=== PATIENT | male | born 1980 ===

== ENCOUNTER 2017-06-03 16:54 | Emergency (ER) | payer BC ==
[2017-06-03 17:04] VITALS: BP 140/83
--- NOTE | 2017-06-03 18:35 | EDM.PDOC ---
ED HPI GENERAL MEDICAL PROBLEM - General Chief Complaint: Chest Pain Stated Complaint: CHEST PAINS AND TIGHTNESS Time Seen by Provider: 06/03/17 18:00 Source of Information: Reports: Patient, Old Records History Limitations: Reports: No Limitations - History of Present Illness INITIAL COMMENTS - FREE TEXT/NARRATIVE: 36-year-old male presents for evaluation and treatment of left-sided chest pain. Patient reports that this current episode chest pain has been present for the last month. States it is episodic. Prior to his episode of chest pain he has had episodic chest pain for at least the last year. He reports that he has been complaining about it for the last 5 years. He was seen in the ER in May 2016 and had a complete workup done. He was then referred on to family medicine. He did see a family medicine provider at [facility]. Had additional labs and testing done. He is instructed to have a stress test but states he never did have the pain. He is currently complaining of tightness there is episodic. He states he's changed his diet since last year and is down approximately 30 pounds. He follows a ketogenic diet. He states he removed Rice from his diaper recently added this back in. He questions if this is what's causing the chest pain. He states that with breathing it seems to hurt. No cough. No fevers, chills, nausea, vomiting, intolerances to heat or cold or shortness of breath. Patient's does not use any tobacco products. He denies any family history of any MIs or her problems at a young age. Duration: Week(s): (4) Left Chest Pain Score (Numeric/FACES): 4 - Related Data Allergies Allergy/AdvReac Type Severity Reaction Status Date / Time No Known Allergies Allergy Verified 05/30/16 19:19 Home Meds: Home Meds Multivitamin [Daily Tello] 1 tab PO DAILY 05/30/16 [History] Past Medical History Gastrointestinal History: Reports: Other (See Below) Other Gastrointestinal History: hernia Social & Family History - Tobacco Use Smoking Status *Q: Never Smoker - Caffeine Use Caffeine Use: Reports: Coffee Other Caffeine Use: 1 pot of coffee a day - Recreational Drug Use Recreational Drug Use: No - Living Situation & Occupation Living situation: Reports: Occupation: Employed ED ROS GENERAL - Review of Systems Review Of Systems: See Below Constitutional: Reports: Weight Loss (intentional with diet changes ). Denies: Fever, Chills Respiratory: Denies: Shortness of Breath, Cough Cardiovascular: Reports: Chest Pain (tightness) Endocrine: Reports: Other (denies heat/cold intolerance) GI/Abdominal: Denies: Nausea, Vomiting Psychiatric: Reports: Anxiety ED EXAM, GENERAL - Physical Exam Exam: See Below Exam Limited By: No Limitations General Appearance: Alert, WD/WN, No Apparent Distress Ears: Normal External Exam Nose: Normal Inspection Throat/Mouth: Normal Inspection, Normal Lips, Normal Voice, No Airway Compromise Neck: Normal Inspection Respiratory/Chest: No Respiratory Distress, Lungs Clear, Normal Breath Sounds Cardiovascular: Normal Peripheral Pulses, Regular Rate, Rhythm, No Murmur GI/Abdominal: Normal Bowel Sounds, Soft, Non-Tender Neurological: Alert, Oriented, Normal Cognition Psychiatric: Normal Affect, Normal Mood Skin Exam: Warm, Dry, Normal Color Course - Vital Signs Last Recorded V/S: Last Vital Signs Temp 37.2 C 06/03/17 17:00 Pulse 61 06/03/17 17:00 Resp 18 06/03/17 17:00 BP 140/83 06/03/17 17:00 Pulse Ox 98 06/03/17 17:00 - Re-Assessments/Exams Free Text/Narrative Re-Assessment/Exam: 06/03/17 18:33 I reviewed the patient's workup from May 2016 as well as additional labs done here following his clinic visit. I informed him that I am limited as to what I can do. He would like additional testing. I informed him I can repeat his EKG, chest x-ray and labs had done, however, I'm unable to get a stress test or an echocardiogram here in the ER. Given that he has had this chest pain for the last 5 years I feel that he should be further evaluated by family medicine. He does acknowledge that this pain could be from anxiety. Also could be something more rare such as lymphoma or a cardiac myxoma. I recommend that he get a stress test and possibly an echocardiogram to further evaluate. Again, I did offer him testing including a repeat chest x-ray, EKG and labs but he decided against this at this time. Will discharge home. Discharge instructions as documented. Departure - Departure Time of Disposition: 18:34 Disposition: Home, Self-Care 01 Condition: Good Clinical Impression: Anterior chest wall pain Instructions: Chest Wall Pain, [id number] Referrals: PCP,None [Primary Care Provider] - Casandra Elizondo [Physician] - Forms: ED Department Discharge Additional Instructions: I recommend you follow-up with a primary care provider for further testing. I do recommend you have a stress test and possibly an echocardiogram. in [place] I recommend Dr. Napoles or Dr. Lewis. Call [phone] to schedule with them. Please return to the ER if your symptoms change or worsen.
== END 2017-06-03 19:20 | disposition home or self-care (01) ==
LOC: JD.ED 16:54
DX: R07.89 Other chest pain (principal); Z79.899 Other long term (current) drug therapy
CPT/HCPCS: 99283